=== PATIENT | female | born 1950 | race Caucasian/White ===

== ENCOUNTER 2022-01-05 19:54 | Emergency (ER) | payer OTHER, MEDICARE ==
[~2022-01-05] VITALS: Ht 165.1 cm; Wt 89.2 kg
[2022-01-05] MEDS ORDERED: VITACAP8 PO (20:14)
[2022-01-05] MEDS ORDERED: ACTO150T PO (20:14)
[2022-01-05] MEDS ORDERED: CALC600T60 PO (20:14)
[2022-01-05] MEDS ORDERED: FIOR1CAP PO (20:14)
[2022-01-05 22:20] LABS: HEMATOCRIT 34.8 % (36.0-47.0); HEMOGLOBIN 11.1 g/dl (12.0-15.5); MEAN CORPUSCULAR HEMOGLOBIN 28.2 pg (27.0-33.0); MEAN CORPUSCULAR HGB CONC 31.9 g/dl (32.0-36.5); MEAN CORPUSCULAR VOLUME 88.5 fl (80.0-96.0); PLATELET COUNT, AUTOMATED 271 10^3/uL (150-450); RED BLOOD COUNT 3.93 10^6/uL (4.00-5.40); WHITE BLOOD COUNT 9.8 10^3/uL (4.0-10.0)
[2022-01-05 22:50] LABS: ALBUMIN 3.4 GM/DL (3.2-5.2); ALT/SGPT 20 U/L (12-78); BILIRUBIN,TOTAL 0.3 MG/DL (0.2-1.0); BLOOD UREA NITROGEN 17 MG/DL (7-18); CALCIUM LEVEL 8.9 MG/DL (8.8-10.2); CARBON DIOXIDE LEVEL 25 MEQ/L (21-32); CHLORIDE LEVEL 110 MEQ/L (98-107); CREATININE FOR GFR 0.67 MG/DL (0.55-1.30); GLOMERULAR FILTRATION RATE > 60.0 (>45); GLUCOSE, FASTING 108 MG/DL (70-100); POTASSIUM SERUM 4.2 MEQ/L (3.5-5.1); SODIUM LEVEL 142 MEQ/L (136-145); TOTAL PROTEIN 6.3 GM/DL (6.4-8.2)
[2022-01-06] MEDS ORDERED: NS 1,000 ML IV ONE (01:45)
[2022-01-06] MEDS ORDERED: ONDANSETRON 4MG/2ML VIAL IV ONE (01:45)
[2022-01-06] MEDS ORDERED: KETOROLAC 30 MG/ML 1ML VIAL IV ONE (01:45)
[2022-01-06] MEDS ORDERED: AMOX875T2 PO (03:03)
[2022-01-06] MEDS ORDERED: AUGMENTIN 875 MG TAB PO ONE (03:15)
[2022-01-06 03:28] VITALS: BP 132/65
== END 2022-01-06 03:30 | disposition home or self-care (01) ==
LOC: M ED 19:54
DX: K57.92 Diverticulitis of intestine, part unspecified, without perforation or abscess without bleeding (principal); Z96.653 Presence of artificial knee joint, bilateral; Z79.899 Other long term (current) drug therapy
CPT/HCPCS: 74176; 80053; 81001; 85027; 87086; 96361; 96374; 96375; 99284; J1885; J2405